=== PATIENT | male | born 1980 ===

== ENCOUNTER 2018-07-25 14:17 | Emergency (ER) | payer BC, OTHER ==
--- NOTE | 2018-07-25 14:55 | ED PDOC ---
HPI: General Adult Time Seen by Provider: 07/25/18 14:51 Chief Complaint (Nursing): Groin Pain Chief Complaint (Provider): cyst to inner thigh History Per: Patient Additional Complaint(s): 38-year-old male presents with painful cyst to left inner thigh ongoing for about one year. Area feels worse over past few days and now is red and swollen x 3 days. Patient denies active drainage, fever or chills. PMD: none Past Medical History Reviewed: Historical Data, Nursing Documentation, Vital Signs Vital Signs: Last Vital Signs Temp 97.7 F 07/25/18 14:33 Pulse 110 H 07/25/18 14:33 Resp 20 07/25/18 14:33 BP 131/83 07/25/18 14:33 Pulse Ox 100 07/25/18 14:33 - Medical History PMH: No Chronic Diseases - Surgical History Surgical History: Hernia Repair (left inguinal) - Family History Family History: States: No Known Family Hx - Living Arrangements Living Arrangements: With Family - Social History Current smoker - smoking cessation education provided: Yes Alcohol: None Drugs: Denies - Home Medications Home Medications: Ambulatory Orders Medication Instructions Recorded Amoxicillin/Clavulanate [Augmentin 1 tab PO BID #14 tab 07/25/18 875 MG-125 MG] Clindamycin [Cleocin] 300 mg PO QID #28 cap 07/25/18 Ibuprofen [Motrin Tab] 800 mg PO Q8 PRN #20 tab 07/25/18 - Allergies Allergies/Adverse Reactions: Allergies Allergy/AdvReac Type Severity Reaction Status Date / Time No Known Allergies Allergy Verified 07/25/18 14:32 Review of Systems ROS Statement: Except As Marked, All Systems Reviewed And Found Negative Constitutional: Negative for: Fever Skin: Positive for: Other (cyst to left inner thigh) Physical Exam - Reviewed Nursing Documentation Reviewed: Yes Vital Signs Reviewed: Yes - Physical Exam Appears: Positive for: Well, Non-toxic, No Acute Distress Skin: Positive for: Normal Color. Negative for: Rash Eye Exam: Positive for: Normal appearance Extremity: Positive for: Other (3 cm indurated abscess noted to left inner thigh with moderate tenderness to palpation, no central pointing or fluctuance, erythematous streaking) Neurologic/Psych: Positive for: Alert, Oriented - ECG O2 Sat by Pulse Oximetry: 100 Pulse Ox Interpretation: Normal Medical Decision Making Medical Decision Making: Impression: indurate abscess Plan: Motrin dose in ED Abscess is too indurated with no fluctuance, no incision and drainage is indicated at this time. Patient given prescriptions for Motrin, clindamycin and Augmentin. He was advised to apply warm compresses to affected area as often as possible and return in 2 days for wound recheck. Disposition - Clinical Impression Clinical Impression: Abscess - Patient ED Disposition Is Patient to be Admitted: No Counseled Patient/Family Regarding: Diagnosis, Need For Followup, Rx Given, Smoking Cessation - Disposition Referrals: [facility] [Outside] Disposition: Routine/Home Disposition Time: 14:55 Condition: STABLE Additional Instructions: Apply warm compresses with Epsom salts to affected area as often as possible. Take prescription meds as directed. Return on Thursday for wound reevaluation. Prescriptions: Amoxicillin/Clavulanate [Augmentin 875 MG-125 MG] 1 tab PO BID #14 tab Clindamycin [Cleocin] 300 mg PO QID #28 cap Ibuprofen [Motrin Tab] 800 mg PO Q8 PRN #20 tab PRN Reason: Pain, Moderate (4-7) Instructions: Skin Abscess
[2018-07-25 15:34] VITALS: BP 141/100; PULSE 88; RESP 16; TEMP 97.8; O2SAT 99
== END 2018-07-25 15:25 | disposition home or self-care (01) ==
LOC: H.ER 14:17
DX: L02.416 Cutaneous abscess of left lower limb (principal)

== ENCOUNTER 2018-07-27 13:02 | Emergency (ER) | payer BC ==
[2018-07-27 13:07] VITALS: BP 120/76; PULSE 99; RESP 18; TEMP 99.1; O2SAT 98
--- NOTE | 2018-07-27 13:36 | ED PDOC ---
HPI: Skin/Bite Injury Time Seen by Provider: 07/27/18 13:08 Chief Complaint (Nursing): Abnormal Skin Integrity Chief Complaint (Provider): Abnormal Skin Integrity History Per: Patient History/Exam Limitations: no limitations Additional Complaint(s): Patient complains of a painful mass to the left groin. Patient was seen here x2 days ago and was prescribed antibiotics for his abscess, which he has been compliant with. He states his symptoms have improved since his last visit. Patient was advised to follow up in 48 hours for a wound check since it could not be drained during his last visit. Patient notes that he has had this "cyst" for awhile(years), but it only recently became painful which prompted his initial ED visit. No other complaints at present. Otherwise: (-) fever, (-) chills, (-) wound drainage. PMD: No provider Past Medical History Reviewed: Historical Data, Nursing Documentation, Vital Signs Vital Signs: Last Vital Signs Temp 99.1 F 07/27/18 13:05 Pulse 99 H 07/27/18 13:05 Resp 18 07/27/18 13:05 BP 120/76 07/27/18 13:05 Pulse Ox 98 07/27/18 13:05 - Medical History PMH: Bipolar Disorder, Bronchitis - Surgical History Surgical History: Hernia Repair (left inguinal) - Family History Family History: States: Unknown Family Hx - Home Medications Home Medications: Ambulatory Orders Medication Instructions Recorded Amoxicillin/Clavulanate [Augmentin 1 tab PO BID #14 tab 07/25/18 875 MG-125 MG] Ibuprofen [Motrin Tab] 800 mg PO Q8 PRN #20 tab 07/25/18 RX: Clindamycin [Cleocin] 300 mg PO QID #28 cap 07/25/18 - Allergies Allergies/Adverse Reactions: Allergies Allergy/AdvReac Type Severity Reaction Status Date / Time No Known Allergies Allergy Verified 07/27/18 13:04 Review of Systems ROS Statement: Except As Marked, All Systems Reviewed And Found Negative Constitutional: Negative for: Fever, Chills Skin: Positive for: Other (abscess) Physical Exam - Reviewed Nursing Documentation Reviewed: Yes Vital Signs Reviewed: Yes - Physical Exam Comments: GENERAL APPEARANCE: Patient is awake, alert, oriented x 3, in no painful distress. Resting comfortably. Skin: warm and dry, (+) 1cm x 2 cm indurated abscess to the inferior left groin fold with minimal erythema, non fluctuant, no surrounding cellulitis or warmth Pulmonary: lungs clear to auscultation bilaterally, no rhonchi, no wheezing, no rales. Cardiac: regular rate and rhythm Abdomen: soft, nontender, nondistended. Extremities: no deformity Neck: supple, FROM ENT: Mucus membranes moist. Airway patent, (-) stridor. - ECG O2 Sat by Pulse Oximetry: 98 (RA) Pulse Ox Interpretation: Normal Medical Decision Making Medical Decision Making: Initial Time: 13:30 Initial Impression: Abscess, wound check Initial Plan: I&D can not be performed at this time due to induration. Patient was advised to continue antibiotics until complete and to apply warm compress daily. Discussed return parameters. Lab /Diagnostic results d/w the patient in great detail. Diagnosis of abscess d/w the patient. Based on history, exam and diagnostic results, plan will be for outpatient follow up. Patient instructed to follow-up with pmd / referral provided / the clinic in 1- 2 days without fail. Advised to take medication as prescribed from prior ED visit. Return to the emergency room at any time for any new or worsening symptoms. Patient states he fully agrees with and understands discharge instructions. States that he agrees with the plan and disposition. Verbalized and repeated discharge instructions and plan. I have given the patient opportunity to ask any additional questions. Scribe Attestation: Documented by Cordell Vásquez, acting as a scribe for Sweta Freedman Provider Scribe Attestation: All medical record entries made by the Scribe were at my direction and personally dictated by me. I have reviewed the chart and agree that the record accurately reflects my personal performance of the history, physical exam, medical decision making, and the department course for this patient. I have also personally directed, reviewed, and agree with the discharge instructions and disposition. Disposition - Clinical Impression Clinical Impression: Wound check, abscess - Disposition Referrals: [facility] [Outside] Disposition: Routine/Home Disposition Time: 13:35 Condition: STABLE Additional Instructions: TAKE ANTIBIOTICS FROM PRIOR ED VISIT UNTIL COMPLETE. APPLY COMPRESSES 4X/DAY. FOLLOW UP AT CLINIC FOR FURTHER EVALUATION. RETURN TO ED IF YOU DEVELOP FEVER, SYMPTOMS DO NOT IMPROVE, OR SYMPTOMS WORSEN IN THE NEXT 48 HOURS. The emergency medical care you received today was directed at your acute symptoms. If you were prescribed any medication, please fill it and take as directed. It may take several days for your symptoms to resolve. Return to the Emergency Department if your symptoms worsen, do not improve, or if you have any other problems. Please contact your doctor in 2 days for re-evaluation and follow up / or call one of the physicians/clinics you have been referred to that are listed on the Patient Visit Information form that is included in your discharge packet. Bring any paperwork you were given at discharge with you along with any medications you are taking to your follow up visit. Our treatment cannot replace ongoing medical care by a primary care provider (PCP) outside of the emergency department. Instructions: Boil, Skin Abscess, Wound Care Forms: [employer] (Romansh) Print Language: SERBIAN
== END 2018-07-27 13:59 | disposition home or self-care (01) ==
LOC: H.ER 13:02
DX: L02.214 Cutaneous abscess of groin (principal)